=== PATIENT | male | born 1960 ===

== ENCOUNTER → 2023-03-02 09:59 | Outpatient (BNVA) | payer MEDICARE, BC, SELFPAY | PROVIDERS: Family Provider Family Medicine; PCP Family Medicine; Visit Provider Dermatology | DX: D23.39 Other benign neoplasm of skin of other parts of face; D36.14 Benign neoplasm of peripheral nerves and autonomic nervous system of thorax; L82.1 Other seborrheic keratosis; R21 Rash and other nonspecific skin eruption | CPT/HCPCS: 11102; 99203 ==

== ENCOUNTER → 2023-04-03 08:03 | Outpatient (BNVA) | payer MEDICARE, BC, SELFPAY | PROVIDERS: Family Provider Family Medicine; PCP Family Medicine; Visit Provider Nurse Practitioner Family | DX: D23.39 Other benign neoplasm of skin of other parts of face (principal); R21 Rash and other nonspecific skin eruption; S41.131A Puncture wound without foreign body of right upper arm, initial encounter; X58.XXXA Exposure to other specified factors, initial encounter; Y93.9 Activity, unspecified; Y92.9 Unspecified place or not applicable; Y99.9 Unspecified external cause status; L72.8 Other follicular cysts of the skin and subcutaneous tissue; L81.4 Other melanin hyperpigmentation; L57.8 Other skin changes due to chronic exposure to nonionizing radiation | CPT/HCPCS: 99214 ==

== ENCOUNTER → 2024-04-03 08:30 | Outpatient (BNVA) | payer MEDICARE, BC, SELFPAY | PROVIDERS: Family Provider Family Medicine; PCP Family Medicine; Visit Provider Nurse Practitioner Family | DX: D23.39 Other benign neoplasm of skin of other parts of face (principal); L81.4 Other melanin hyperpigmentation; L57.8 Other skin changes due to chronic exposure to nonionizing radiation; L57.0 Actinic keratosis; L72.8 Other follicular cysts of the skin and subcutaneous tissue; D36.14 Benign neoplasm of peripheral nerves and autonomic nervous system of thorax; L82.0 Inflamed seborrheic keratosis | CPT/HCPCS: 17000; 99213 ==

== ENCOUNTER → 2025-04-03 09:39 | Outpatient (BNVA) | payer MEDICARE, BC, SELFPAY | PROVIDERS: Family Provider Family Medicine; PCP Family Medicine; Visit Provider Nurse Practitioner Family | DX: L72.0 Epidermal cyst (principal); L57.8 Other skin changes due to chronic exposure to nonionizing radiation; L81.4 Other melanin hyperpigmentation; L82.1 Other seborrheic keratosis; L30.4 Erythema intertrigo | CPT/HCPCS: 11102; 17000; 99213 ==